=== PATIENT | male | born 1975 | race Caucasian/White ===

== ENCOUNTER 2022-03-11 09:47 | Emergency (ER) | payer OTHER ==
[~2022-03-11] VITALS: Ht 182.9 cm; Wt 90.0 kg
[2022-03-11] MEDS ORDERED: KETOROLAC 30MG/ML VIAL IV STA (10:00)
[2022-03-11] MEDS ORDERED: ONDANSETRON HCL 4MG/2ML INJ IV STA (10:00)
[2022-03-11] MEDS ORDERED: SODIUM CHLORIDE 0.9% 1,000 ML IV ONE (10:00)
[2022-03-11 10:37] VITALS: BP 159/106
[2022-03-11 10:42] LABS: BASOPHILS % 0.2 % (0.0-2.0); EOSINOPHILS % 0.5 % (0.0-5.0); HEMATOCRIT. 56.2 % (42.0-52.0); MEAN CORPUSCULAR HEMOGLOBIN 31.5 pg (28.0-32.0); MEAN PLATELET VOLUME 7.3 fl (7.4-10.4); MONOCYTES % 11.9 % (2.0-8.0); NEUTROPHILS % 75.4 % (40.0-76.0); PLATELET 226 x1000/uL (130-400); RED BLOOD CELL COUNT 6.03 mill/uL (4.7-6.1); RED CELL DISTRIBUTION WIDTH 13.9 % (11.6-14.6)
[2022-03-11 11:28] LABS: CHLORIDE 104 mEq/L (98-107)
[2022-03-11] MEDS ORDERED: IBUP-2029 MT (12:41)
== END 2022-03-11 13:00 | disposition home or self-care (01) ==
LOC: ER 09:47
DX: U07.1 COVID-19 (principal)
CPT/HCPCS: 36415; 71045; 80053; 85025; 96361; 96374; 96375; 99284; J1885; J2405; J7030